=== PATIENT | female | born 1960 | race Caucasian/White ===

== ENCOUNTER 2022-08-08 20:18 | Emergency (ER) | payer OTHER ==
[2022-08-08] MEDS ORDERED: Boostrix 0.5 ML (Tdap) VIAL (>/=7 yrs of age) ONE (20:49)
[2022-08-08] MEDS ORDERED: Lorazepam 0.5 MG TAB ONE (20:49)
[2022-08-08] MEDS ORDERED: Lidocaine 4% Cream 5 GM TUBE w/ Tegaderm ONE (20:51)
== END 2022-08-08 21:43 | disposition home or self-care (01) ==
LOC: BURERS 20:18
DX: S01.01XA Laceration without foreign body of scalp, initial encounter (principal); Z23 Encounter for immunization; W26.8XXA Contact with other sharp object(s), not elsewhere classified, initial encounter; Y93.89 Activity, other specified
CPT/HCPCS: 12002; 90715

== ENCOUNTER 2022-08-24 21:09 | Emergency (ER) | payer OTHER | END 2022-08-24 21:35 | disposition home or self-care (01) | LOC: BURERS 21:09 | DX: S01.01XD Laceration without foreign body of scalp, subsequent encounter (principal) ==